=== PATIENT | female | born 1990 | race Caucasian/White ===

== ENCOUNTER → 2017-05-08 08:04 | Outpatient (CLI) | payer OTHER, SELFPAY ==
[2017-05-08 08:19] LABS: Blood Urea Nitrogen 16 mg/dL (7-18); Creatinine,Serum 0.98 mg/dL (0.55-1.02); Estimated Glomerular Filt Rate 70 ml/min (>60); GFR (African American) 84 ML/MIN (>60)
== END ==
PROVIDERS: PCP Internal Medicine Adolescent Medicine; Visit Provider Otolaryngology
DX: R42 Dizziness and giddiness (principal); H93.13 Tinnitus, bilateral
CPT/HCPCS: 36415; 82565; 84520

== ENCOUNTER → 2017-07-24 14:39 | Outpatient (CLI) | payer OTHER, SELFPAY ==
--- NOTE | 2017-07-24 14:58 | US_ITS ---
US transvaginal HISTORY: ITS.REASON: RT OVARIAN CYST ORDERING PHYSICIAN: Jose Raul Good MD PATIENT AGE: 26 years COMPARISON: 12/19/2016 FINDINGS: The uterus is 6.3 x 3 x 3.8 cm. Combined endometrial thickness is 7 mm. No uterine mass. Right ovary measures 3 x 1.7 cm and contains a 9 mm follicular cyst. Left ovary is been removed. No cul-de-sac fluid apparent. Previously there were multiple follicles noted in the right ovary. IMPRESSION: 1. Small 9 x 5 mm right ovarian cyst. Multiple previous follicles are no longer apparent. 2. Prior left oophorectomy
== END ==
PROVIDERS: Family Provider Internal Medicine Adolescent Medicine; PCP Internal Medicine Adolescent Medicine; Visit Provider Obstetrics & Gynecology
DX: N83.201 Unspecified ovarian cyst, right side (principal)
CPT/HCPCS: 76830

== ENCOUNTER → 2018-07-25 14:29 | Outpatient (CLI) | payer OTHER, SELFPAY | PROVIDERS: PCP Internal Medicine Adolescent Medicine; Visit Provider Nurse Practitioner Family | DX: Z00.00 Encounter for general adult medical examination without abnormal findings (principal) ==

== ENCOUNTER → 2019-11-03 11:26 | Outpatient (POV) | payer OTHER, SELFPAY ==
[2019-11-03 13:54] LABS: Blood Urea Nitrogen 12 mg/dl (7-17); Estimated Glomerular Filt Rate 86 ml/min (>60); GFR (African American) 104 ML/MIN (>60)
== END ==
PROVIDERS: Visit Provider Otolaryngology
DX: R42 Dizziness and giddiness (principal)
CPT/HCPCS: 36415; 82565; 84520

== ENCOUNTER → 2020-11-28 10:44 | Outpatient (CLI) | payer OTHER, SELFPAY ==
[2020-11-28 11:24] LABS: Basophils % 0.6 % (0.1-2.0); Eosinophils # 0.2 K/mm3 (0.0-0.4); Eosinophils % 2.7 % (0.1-12.0); Hemoglobin 13.5 g/dL (12.2-16.2); Lymphocytes # 1.9 K/mm3 (0.7-4.5); Lymphocytes % 29.1 % (10-50); Mean Corpuscular Hemoglobin 28.3 pg (27.0-31.2); Mean Corpuscular Volume 85.6 fl (81-99); Mean Platelet Volume 7.7 fl (7.4-10.4); Monocytes # 0.3 K/mm3 (0.1-1.0); Monocytes % 4.6 % (1.7-9.3); Platelet Count 297 K/mm3 (142-424); Red Blood Count 4.79 M/mm3 (4.20-5.40); Red Cell Distribution Width 13.7 % (11.5-17.5); White Blood Count 6.4 K/mm3 (4.8-10.8)
[2020-11-28 11:49] LABS: Chloride 107 mmol/L (98-107); Potassium 3.9 mmoL/L (3.5-5.1); Sodium 141 mmol/L (136-145)
[2020-11-28 11:51] LABS: Alanine Aminotransferase 19 U/L (12-78); Aspartate Amino Transferase 19 U/L (14-36); Blood Urea Nitrogen 14 mg/dl (7-17); Estimated Glomerular Filt Rate 85 ml/min (>60); GFR (African American) 103 ML/MIN (>60)
[2020-11-28 11:52] LABS: Albumin Level 3.8 g/dl (3.5-5.0); Albumin/Globulin Ratio 1.4 (1.1-1.8); Alkaline Phosphatase 93 U/L (38-126); Anion Gap 10.9 mEq/L (5-15); Bilirubin,Total 0.4 mg/dl (0.2-1.3); Calcium 8.9 mg/dl (8.4-10.2); Carbon Dioxide 27 mmol/L (22.0-30.0); Globulin 2.8 g/dL (1.3-3.2); Glucose 113 mg/dl (74-100); Total Protein,Serum 6.6 g/dl (6.3-8.2)
[2020-11-28 14:15] LABS: Fibrinogen 443 mg/dL (229.9-363.5)
[2020-11-28 14:26] LABS: Activated Partial Thrombo Time 27.9 seconds (22.8-30.6); Prothrombin Time 10.5 seconds (10.1-12.5)
[2020-11-28 14:27] LABS: INR 0.88 (0.9-1.1)
== END ==
PROVIDERS: Visit Provider Nurse Practitioner Family
DX: T14.8XXA Other injury of unspecified body region, initial encounter (principal)
CPT/HCPCS: 36415; 80053; 85025; 85384; 85610; 85730

== ENCOUNTER → 2021-02-02 13:59 | Outpatient (CLI) | payer OTHER, SELFPAY ==
[2021-02-02 15:28] LABS: Fibrinogen 437 mg/dL (229.9-363.5)
== END ==
PROVIDERS: Visit Provider Internal Medicine Medical Oncology
DX: R79.1 Abnormal coagulation profile (principal); R23.2 Flushing
CPT/HCPCS: 36415; 85384

== ENCOUNTER → 2021-02-14 18:20 | Outpatient (CLI) | payer OTHER, SELFPAY ==
[2021-02-21 14:21] LABS: Vitamin C 0.4 mg/dL (0.4-2.0)
== END ==
PROVIDERS: Visit Provider Internal Medicine Medical Oncology
DX: R23.2 Flushing (principal); R79.89 Other specified abnormal findings of blood chemistry
CPT/HCPCS: 36415; 82180

== ENCOUNTER 2021-04-01 11:41 | Emergency (ER) | payer OTHER, SELFPAY ==
[2021-04-01 12:24] VITALS: BP 179/74; PULSE 81; RESP 19; TEMP 36.5; O2SAT 100; BMI 40.7
--- NOTE | 2021-04-01 12:37 | HMH.EDUTC ---
[facility] [place] Clinical Impression: Viral syndrome Pharyngitis Qualifiers: Pharyngitis/tonsillitis etiology: unspecified etiology Qualified Code(s): J02.9 - Acute pharyngitis, unspecified Sinusitis Qualifiers: Sinusitis location: unspecified location Chronicity: acute Recurrence: non-recurrent Qualified Code(s): J01.90 - Acute sinusitis, unspecified Disposition: Home, Self-Care Condition on Discharge: Good Instructions: DI for Sinusitis, DI for Viral Syndrome Additional Instructions: Drink plenty of fluids. Take tylenol or ibuprofen for pain or fever. Take the medications as directed. Follow up with your regular doctor. GO TO THE ER FOR ANY WORSENING SYMPTOMS Quarantine until you know the results of your covid-19 test. If it is positive, the health department should call you and give you further instructions about your length of Quarantine and other things. Notify your school or workplace of your results and follow their instructions regarding return to work/school. Prescriptions: Promethazine/Dextromethorphan [Promethazine-Dm Syrup] 5 ml PO Q6HP PRN #240 ml PRN Reason: Cough Transmission Status: Received by [facility] Benzonatate [Benzonatate 100mg cap] 100 mg PO TIDP PRN #30 cap PRN Reason: Cough Transmission Status: Received by [facility] methylPREDNISolone [Medrol] 4 mg PO DIRECTED 6 Days #21 packet Transmission Status: Received by [facility] Azithromycin [Z-Jose 250mg Tab*] 250 mg PO UD DOSE PK #6 tab Transmission Status: Received by [facility] Referrals: Puma Fuentes MD [Primary Care Provider] - Forms: Work/School Release Time of Disposition: 13:20 Medical Decision Making - Medical Records Medical records reviewed: No: I reviewed the patient's medical records. - Han Inquiry Pt receiving controlled substance: No Vital Signs: 04/01/21 12:24 04/01/21 13:01 Temperature 97.7 F 97.7 F Temperature Source Oral Pulse Rate 81 Pulse Rate [Left] 81 Respiratory Rate 19 19 Blood Pressure 179/74 H Blood Pressure [Right Arm] 179/74 H Blood Pressure Mean [Right Arm] 109 02 Sat by Pulse Oximetry 100 - Lab Data Lab results reviewed: Yes: I reviewed the patient's lab results. Lab Results 04/01/21 12:37: Influenza Type A Ag Negative, Influenza Type B Ag Negative 04/01/21 12:55: Strep Scn Rapid Clinic Negative Orders (Tests/Meds): ORDERS Category Date Time Status Strep Screen Confirmation Stat Micro 04/01/21 12:55 [place] [facility] [place] - General Stated complaint: sore throat, musle pain, congestion, headache Time Seen by Provider: 04/01/21 12:37 Mode of Arrival: Ambulatory Source of Information: Patient Limitations: No Limitations Description of Symptoms (Recalled from Triage Doc. by RN): pt c/o head congestion, nasal drainage, body aches and fever. HEENT Symptoms (Recalled from RN notes): Yes (nasal congestion and drainage) Resp Symptoms (Recalled from RN notes): No Skin Symptoms (Recalled from RN notes): No MS Symptoms (Recalled from RN notes): No Functional Status (Recalled from RN notes): wnl - History of Present Illness Provider Complaint: She c/o sore throat, sinus pressure, nasla drainage, a cough and mild chest tightness for the past 4 days. - Related Data Home Medications Medication Instructions Recorded Confirmed hydrochlorothiazide 50 mg tablet 50 mg PO ONCE 07/18/17 02/23/21 bupropion HCl 150 mg tablet,12 hr 150 mg PO DAILY 02/02/21 02/23/21 sustained-release potassium gluconate 595 mg (99 mg) 595 mg PO DAILY 02/02/21 02/23/21 tablet Previous Rx's Medication Instructions Recorded PNV 153-FA 400 mcg-om3 35 mg-dha 1 tab PO DAILY #30 tab 01/26/20 25 mg-epa 5 mg-fish oil chew tablet Tri-Sprintec (28) 0.18 mg(7)/0.215 See Rx Instructions .ROUTE 02/18/21 mg(7)/0.25 mg(7)-35 mcg tablet .COMPLEX #28 tab NS Azithromycin [Z-Jose 250mg Tab*] 250 mg PO UD DOSE PK #6 tab
[2021-04-01 12:41] LABS: UTC Influenza A Antigen Negative (Negative); UTC Influenza B Antigen Negative (Negative)
[2021-04-01 13:01] VITALS: BP 179/74; PULSE 81; RESP 19; TEMP 36.5
[2021-04-01 13:06] LABS: UTC Strep Screen (Rapid) Negative (Negative)
== END 2021-04-01 13:27 | disposition home or self-care (01) ==
PROVIDERS: Emergency Provider Nurse Practitioner Family; PCP Internal Medicine Adolescent Medicine
DX: U07.1 COVID-19 (principal); J01.90 Acute sinusitis, unspecified
CPT/HCPCS: 87804; 87880; 99203; C9803; G0463; U0003; U0005

== ENCOUNTER 2022-02-05 10:44 | Emergency (ER) | payer BC, SELFPAY ==
[2022-02-05 10:59] VITALS: BP 126/84; PULSE 98; RESP 16; TEMP 36.9; O2SAT 98; BMI 44.3
--- NOTE | 2022-02-05 11:01 | EXP.UTC ---
Discharge Plan Disposition Patient Disposition: Home, Self-Care Condition: Good Prescriptions Prescriptions: No Action hydrochlorothiazide 50 mg tablet 50 mg PO ONCE Gummies 400 mcg-35 mg- 25 mg-5 mg tablet,chewable 1 tab PO DAILY Qty: 30 6RF bupropion HCl [Wellbutrin SR] 150 mg tablet sustained-release 12 hr 150 mg PO DAILY potassium gluconate 595 mg (99 mg) tablet 595 mg PO DAILY norgestimate-ethinyl estradiol [Tri-Sprintec (28)] 0.18/0.215/0.25 mg-35 mcg (28) tablet See Rx Instructions .ROUTE .COMPLEX Qty: 28 0RF Dose Instruction: Take 1 tablet by mouth once daily Rx Instructions: Take 1 tablet by mouth once daily azithromycin 250 MG tablet 250 mg PO UD DOSE PK Qty: 6 0RF Rx Instructions: Take two (2) tablets today, then one (1) tablet days #2 thru #5 methylprednisolone 4 MG tablets,dose pack 4 mg PO DIRECTED 6 Days Qty: 21 0RF promethazine-DM 120 ML syrup 5 ml PO Q6HP PRN (Reason: Cough) Qty: 240 0RF benzonatate 100 MG capsule 100 mg PO TIDP PRN (Reason: Cough) Qty: 30 0RF Referrals Follow up/Referrals: Puma Fuentes MD [Primary Care Provider] - See instructions Activity Restrictions/Add. Instructions Additional Instructions/Restrictions: *Monitor Temp, Over the counter Motrin or Tylenol as directed/as needed Tylenol every 4 hours and Motrin every 6 hours (as long as your family doctor has told you that you can take it) for fever or pain. and straight to ER if unable to lower temp less than 101.0 after medication given *Warm salt water gargles may help to soothe the throat *Throat Lozenges? *Warm fluids like tea with honey may help to soothe the throat? *Sleep elevated *Humidifier/Vaporizer Follow up IMMEDIATELY for new or worsening symptoms or no Noticeable improvement over the next 48-72 hours. 911 for difficulty breathing or swallowing You were tested for today for COVID19 your test result should be back in the next 24-48 hours, you may check your results on the [facility] Make sure to take your Vitamins Vit. C Vit D and Zinc if you can take them Clinical Impressions Clinical Impression: Exposure to COVID-19 virus Stand Alone Forms Stand Alone Forms: Work/School Release Instructions Patient Instructions: Coronavirus Disease 2019, Preventing the Spread of Coronavirus Discharge Instructions Discharge ED Provider[place] [facility] [place] General Stated complaint: Covid test, cough, congestion Time Seen by Provider: 02/05/22 11:01 History of Present Illness Provider Complaint: Patient states that she has been around her father that tested positive for COVID states that she has been having cough and nasal congestion so she came in to get tested for COVID Related Data Home Medications Medication Instructions Recorded Confirmed hydrochlorothiazide 50 mg tablet 50 mg PO ONCE 07/18/17 02/23/21 bupropion HCl 150 mg tablet,12 hr 150 mg PO DAILY 02/02/21 02/23/21 sustained-release (Wellbutrin SR) potassium gluconate 595 mg (99 mg) 595 mg PO DAILY 02/02/21 02/23/21 tablet Previous Rx's Medication Instructions Recorded PNV 153-FA 400 mcg-om3 35 mg-dha 1 tab PO DAILY #30 tabs 01/26/20 25 mg-epa 5 mg-fish oil chew tablet ( Gummies) azithromycin 250 mg tablet 250 mg PO UD DOSE PK #6 tabs 04/01/21 benzonatate 100 mg capsule 100 mg PO TIDP PRN Cough #30 caps 04/01/21 methylprednisolone 4 mg tablets in 4 mg PO DIRECTED 6 days #21 04/01/21 a dose pack packets promethazine-DM 6.25 mg-15 mg/5 mL 5 ml PO Q6HP PRN Cough #240 mL 04/01/21 oral syrup Tri-Sprintec (28) 0.18 mg(7)/0.215 See Rx Instructions .Route 01/29/22 mg(7)/0.25 mg(7)-35 mcg tablet .COMPLEX #28 tabs (norgestimate-ethinyl estradiol) Allergies Allergy/AdvReac Type Severity Reaction Status Date / Time cefaclor [From CECLOR] Allergy Intermediate I-RASH Verified 02/05/22 11:03 cephalexin [From KEFLEX] Allergy In
[2022-02-05 11:28] VITALS: BP 136/84; PULSE 98; RESP 16; TEMP 36.9
== END 2022-02-05 11:29 | disposition home or self-care (01) ==
PROVIDERS: Emergency Provider Nurse Practitioner; PCP Internal Medicine Adolescent Medicine
DX: U07.1 COVID-19 (principal); R05.9 Cough, unspecified; Z79.52 Long term (current) use of systemic steroids; Z88.8 Allergy status to other drugs, medicaments and biological substances
CPT/HCPCS: 99213; C9803; G0463; U0003; U0005

== ENCOUNTER → 2022-04-30 09:12 | Outpatient (CLI) | payer BC, SELFPAY ==
[2022-04-30 09:52] LABS: Chloride 103 mmol/L (98-107)
[2022-04-30 09:53] LABS: Potassium 3.1 mmoL/L (3.5-5.1); Sodium 139 mmol/L (136-145)
[2022-04-30 09:55] LABS: Alanine Aminotransferase 18 U/L (12-78); Alkaline Phosphatase 90 U/L (38-126); Anion Gap 11.1 mEq/L (5-15); Aspartate Amino Transferase 20 U/L (14-36); Bilirubin,Total 0.4 mg/dl (0.2-1.3); Blood Urea Nitrogen 15 mg/dl (7-17); Carbon Dioxide 28 mmol/L (22.0-30.0); Estimated Glomerular Filt Rate 74 ml/min (>60); GFR (African American) 90 ML/MIN (>60)
[2022-04-30 09:56] LABS: Albumin Level 3.5 g/dl (3.5-5.0); Albumin/Globulin Ratio 1.3 (1.1-1.8); Calcium 8.4 mg/dl (8.4-10.2); Globulin 2.6 g/dL (1.3-3.2); Glucose 110 mg/dl (74-100); Magnesium 2.1 mg/dl (1.6-2.3); Total Protein,Serum 6.1 g/dl (6.3-8.2)
== END ==
PROVIDERS: PCP Internal Medicine Adolescent Medicine; Visit Provider Otolaryngology
DX: T50.1X5A Adverse effect of loop [high-ceiling] diuretics, initial encounter (principal); E87.6 Hypokalemia
CPT/HCPCS: 36415; 80053; 83735

== ENCOUNTER 2024-09-28 20:29 | Emergency (ER) | payer BC, SELFPAY ==
[2024-09-28 20:37] VITALS: BP 131/64; PULSE 76; RESP 16; TEMP 37; O2SAT 100; BMI 40.7
--- NOTE | 2024-09-28 20:43 | XR_ITS ---
PROCEDURE INFORMATION: Exam: XR Right Ankle Exam date and time: 09/28/2024 8:46 PM Age: 34 years old Clinical indication: Pain; Ankle; Right; Additional info: Ankle injury, twisted ankle TECHNIQUE: Imaging protocol: Radiologic exam of the right ankle. Views: 3 or more views. COMPARISON: No relevant prior studies available. FINDINGS: Bones/joints: No acute fracture or malalignment. Calcaneal enthesopathy. Soft tissues: Unremarkable. IMPRESSION: No acute osseous findings.
--- NOTE | 2024-09-28 20:55 | PC.NURSE ---
Ice pack applied
[2024-09-28 21:00] LABS: Urine Pregnancy, HCG Qual. Negative (Negative)
--- NOTE | 2024-09-28 22:08 | HMH.EDGENADL ---
Discharge Plan Disposition Patient Disposition: Home, Self-Care Condition: Good Prescriptions Prescriptions: No Action hydrochlorothiazide 50 mg tablet 50 mg PO ONCE Gummies 400 mcg-35 mg- 25 mg-5 mg tablet,chewable 1 tab PO DAILY Qty: 30 6RF bupropion HCl [Wellbutrin SR] 150 mg tablet sustained-release 12 hr 150 mg PO DAILY potassium gluconate 595 mg (99 mg) tablet 595 mg PO DAILY norgestimate-ethinyl estradiol [Tri-Sprintec (28)] 0.18/0.215/0.25 mg-35 mcg (28) tablet See Rx Instructions .ROUTE .COMPLEX Qty: 84 3RF Dose Instruction: Take 1 tablet by mouth once daily Rx Instructions: Take 1 tablet by mouth once daily Referrals Follow up/Referrals: Puma Fuentes MD [Primary Care Provider, Internal Medicine] - See instructions Activity Restrictions/Add. Instructions Additional Instructions/Restrictions: As we discussed, your x-ray of your ankle did not show any broken bones. It is likely, in this case, that you have an ankle sprain. Please bear weight as tolerated and take Tylenol and ibuprofen as needed for pain. Please return with any worsening symptoms Clinical Impressions Clinical Impression: Right ankle sprain Print Language Print Language: Tristanian Discharge ED Provider: Ramez Winter General Adult HPI General Chief complaint: Extremity Injury, Upper Stated complaint: AO 09/28/24 1700 right ankle injury Time Seen by Provider: 09/28/24 22:08 Mode of Arrival: Wheelchair Source of Information: Patient Description of Symptoms (Recalled from ER Triage Doc. by RN): Pt presents with right ankle pain after rolling it around 1700. History of Present Illness HPI narrative: The patient presents with a chief complaint of ankle injury. . The pain is localized primarily to the inside of the ankle, particularly when flexing or pointing the foot. The patient has been unable to bear weight on the affected ankle since the injury occurred. The patient describes the pain as similar to a previous foot fracture experienced 10 years ago in the same foot. However, they note that unlike the previous injury, which caused immediate swelling like a grapefruit, the current injury did not result in such dramatic swelling. The patient denies any numbness or tingling in the foot. They also deny any pain in the knee or other areas besides the ankle. The patient has a history of a broken foot on the same side approximately 10 years ago. They report no other past ankle or foot issues on the currently affected side. Medical history is significant for a foot fracture 10 years ago, which also required surgery. Associated symptoms include pain with flexion and pointing of the foot. The patient denies knee pain, numbness, or tingling in the foot. Please note that above description of symptoms, in this electronic medical record under categorization of recalled from ER triage doctor by RN are reflective of an initial nursing assessment, however, is not reflective of my full history and physical exam that was personally taken and clarified. Consequentially, this preceding description of symptoms, which may include the patient's categorized chief complaint in the EMR, do not reflect my personal clinical impression, and the ultimate description of history of present illness and patient stated complaints should be deferred to this section of the note. Unless stated otherwise or congruent with this section of the note, additional signs, symptoms, or incongruence should be interpreted as inaccurate with my clinical impression. Related Data Home Medications ?Medication ?Instructions ?Recorded ?Confirmed hydrochlorothiazide 50 mg tablet 50 mg PO ONCE 07/18/17 02/26/22 bupropion HCl 150 mg tablet,12 hr 150 mg PO DAILY 02/02/21 02/26/22 sustained-release (Wellbutrin SR) potassium gluconate 595 mg (99 mg) 595 mg PO DAILY 02/02/21 02/26/22 tablet Previous Rx's ?Medication ?Instructions ?Recorded PNV 153-FA 400 mcg-om3 35 mg-dha 1 tab PO DAILY #30 tabs 01/26/20 25 mg-epa 5 mg-fish oil chew tablet ( Gummies) Tri-Sprintec (28) 0.18 mg(7)/0.215 See Rx Instructions .Route 02/10/23 mg(7)/0.25 mg(7)-0.035 mg tablet .COMPLEX #84 tabs (norgestimate-ethinyl estradiol) Allergies Allergy/AdvReac Type Severity Reaction Status Date / Time cefaclor (From CECLOR) Allergy Intermediate I-RASH Verified 02/26/22 09:53 cephalexin (From KEFLEX) Allergy Intermediate I-RASH Verified 02/26/22 09:53 [facility] Disclaimer: The information contained in this section may have been updated after the patient was seen, as this information can be updated by other users. Social History Smoking Status: Never smoker alcohol intake: never substance use type: denies use current occupational status: employed Travel in the last 8 weeks?: None Have you lived/traveled outside US in past 30 days?: No Contact w/someone who lives/traveled outside US past 30 days?: No Exposure to someone with infectious disease in past 14 days?: No Do you have a fever (greater than 100.4 F or 38 C)?: No Have you tested positive for COVID-19?: No Exposed to someone with COVID-19 in past 14 days?: No Do you have a sore throat?: No Do you have a cough?: No Do you have any weakness?: No Do you have any diarrhea?: No Are you experiencing any unusual bleeding?: No Do you have any muscle aches/pain?: No Do you have any abdominal pain?: No Are you experiencing loss of taste or smell?: No Other Medical History Have you received the Flu Vaccine for this season: No Have you received the Pneumonia Vaccine: No ROS Obtained: Yes other As per HPI Physical Exam General General appearance: alert and in no apparent distress Head Head exam: atraumatic and normocephalic Eye Eye exam: Present normal appearance Neck Neck exam: Present normal inspection Chest Chest inspection: Present normal inspection and symmetric chest wall rise Respiratory Respiratory exam: Present normal lung sounds bilaterally; Absent respiratory distress Cardiovascular Cardiovascular exam: Present regular rate and normal rhythm Abdominal Exam Abdominal exam: Present soft Neurological Exam Neurological exam: Present alert and oriented X3 Psychiatric Psychiatric exam: Present normal affect and normal mood Skin Skin exam: Present warm and dry Other Other exam information: Lateral malleoli are tenderness to palpation on affected ankle. Distally neurovascularly intact Medical Decision Making Medical Records Medical records reviewed: Yes I reviewed the patient's medical records. Screening: Per USPSTF and CDC recommendations, given the prevalence of disease in our region, it is our hospital?s policy to screen for HIV and viral Hepatitis for all patients aged 18 and over and those with ongoing risk factors. Han Inquiry Pt receiving controlled substance: No Vital Signs: 09/28/24 20:37 09/28/24 22:56 Temperature 98.6 F 98.3 F Temperature Source Oral Oral Pulse Rate 73 Pulse Rate [Left] 76 Respiratory Rate 16 16 Blood Pressure 107/65 L Blood Pressure [Right Arm] 131/64 Blood Pressure Mean [Right Arm] 86 Blood Pressure Source [Right Arm] Automatic Cuff Blood Pressure Position [Right Arm] Sitting 02 Sat by Pulse Oximetry 100 Oxygen Delivery Method Room Air Room Air Lab Data Lab Results 09/28/24 20:45: Urine HCG, Qual Negative Orders (Tests/Meds): ORDERS Category Date Time Status Ankle XR -Right minimum 3 Views [XR ankle RT min 3V] Exams 09/28/24 20:43 Completed Stat Urine , HCG Qual. Stat Lab 09/28/24 20:45 Completed Medical Decision Narrative: Patient with history and exam per above presenting for evaluation of ankle pain Diagnoses considered include sprain, strain, fracture, no clinical evidence of neurovascular injury or injury elsewhere ED workup and treatment included: Ankle x-ray Imaging was independently visualized and interpreted by me, significant for no acute osseous abnormality Please refer to radiology report for full details. My clinical impression at this time is most consistent with ankle sprain I discussed my clinical impression with patient and answered all questions. At this time, the evidence for any other entities in the differential is insufficient to warrant any further testing or ED observation. This was explained to the patient. The patient was advised that persistent or worsening symptoms require further evaluation. Critical Care Critical Care Time Critical Care Time: No
[2024-09-28 22:56] VITALS: BP 107/65; PULSE 73; RESP 16; TEMP 36.8; O2SAT 100
== END 2024-09-28 23:04 | disposition home or self-care (01) ==
PROVIDERS: Emergency Provider Emergency Medicine; PCP Internal Medicine Adolescent Medicine
DX: S93.401A Sprain of unspecified ligament of right ankle, initial encounter (principal); X50.1XXA Overexertion from prolonged static or awkward postures, initial encounter
CPT/HCPCS: 73610; 81025; 99283

== ENCOUNTER 2025-04-15 10:54 | Outpatient (CLI) | payer BC, SELFPAY ==
--- OUTSIDE RECORDS SUMMARY | 2025-04-15 12:15 | XMS_ITS ---
Author Organization Unknown ENCOUNTERS Encounter Performer Location Date Diagnosis Diagnosis Status Emergency [facility] [place] [place] [address] [id number] [place] Pre Admit [address] [place] [address] [id number] Emergency Natalee Morales [address] [address] [place] [address] [id number] [place] Emergency Rickey Ya [address] [place] [address] [phone] [place] *Note: Encounters from your own facility or health system may be excluded. Allergies, Adverse Reactions, Alerts Allergen Type Severity Identification Date cefaclor drug allergy 3 20210223 cephalexin drug allergy 3 20210223 Medications Name Date Quantity Days Supplied GPI Number
--- OUTSIDE RECORDS SUMMARY | 2025-04-15 12:15 | XMS_ITS | Clinical Summary ---
Author Organization [facility] Address [address] [place] [address] Care Team Providers Care Mold Maintenance Technician Name Role Phone Puma Fuentes MD Primary Care Provider [phone] Allergies Active Allergy Reactions Criticality Noted Date Comments Cefaclor Rash,Unknown - Low Severity Medium 02/27/20 22 Cephalexin Rash,Unknown - Low Severity Medium 02/27/20 22 Medications buPROPion XL (WELLBUTRIN XL) 150 MG 24 hr tablet TAKE 1 TABLET BY MOUTH EVERY 24 HOURS Active hydroCHLOROthia zide 50 MG tablet Take 1 tablet by mouth Every Morning. Active potassium chloride (KLOR-CON M20) 20 MEQ CR tablet Take 1 tablet by mouth Daily. Active multivitamin (MULTI VITAMIN PO) Take by mouth Daily. Active potassium chloride (MICRO-K) 10 MEQ CR capsule Take 1 capsule by mouth 2 (Two) Times a Day. 60 capsule 1 02/07/2024 Active Active Problems No known active problems Family History Medical History Relation Name Comments Diabetes Mother Tracie Benson Hypertension Mother Tracie Benson Relation Name Status Comments Mother Tracie Benson Social History Tobacco Use Types Packs/Day Years Used Date Smoking Tobacco: Never Tobacco Cessation:Counseling Given: Not Answered Alcohol Use Standard Drinks/Week Comments Never 0 (1 standard drink = 0.6 oz pur e alcohol) Comments Unknown Sex and Gender Information Value Date Recorded Sex Assigned at Not on file Legal Sex Female 10:37 AM EDT Gender Identity Not on file Sexual Orientation Not on file Last Filed Vital Signs Vital Sign Reading Time Taken Comments Blood Pressure 140/90 05/06/2024 11:00 AM EST Pulse - - Temperature - - Respiratory Rate - - Oxygen Saturation - - Inhaled Oxygen Concentration - - Weight 120 kg (264 lb) 05/06/2024 11:00 AM EST Height 170.2 cm (5' 7.01 ) 05/06/2024 11:[address] Body Mass Index 41.34 05/06/2024 11:00 AM EST Plan of Treatment Upcoming Encounters Date Type Department Care Team (Late st Contact Info) Description 05/05/2025 3:20 PM EST Office Visit [facility] [address] [place] [address] Lilli Samuel MD [address] [facility] [address] [place] [address] Health Maintenance Due Date Last Done Comments TDAP/TD VACCINES (1 - Tdap) 09/08/2011 ANNUAL PHYSICAL 08/21/2023 HEPATITIS C SCREENING 08/21/2023 Annual Gynecologic Pelvic an d Breast Exam 08/21/2024 08/21/2023 INFLUENZA VACCINE 11/27/2024 03/31/2015 PAP SMEAR 08/20/2026 08/21/2023 Pneumococcal Vaccine 0-49 Aged Out No longer eligible based on patient's age to complete this topic Procedures Procedure Name Priority Date/Time Associated Diagnosis Comments LIQUID-BASED PAP SMEAR WITH HPV GENOTYPING REGARDLESS OF INTERPRETATION, [facility] ([facility]) Routine 08/21/2023 2:22 PM EDT Encounter for gynecological examination without abnormal finding from Last 3 Months or Most Recently Relevant to Health Maintenance Results * LIQUID-BASED PAP SMEAR WITH HPV GENOTYPING REGARDLESS OF INTERPRETATION (FILIPE,COR,MAD) (08/21/2023 2:22 PM EDT) Reference Lab Report [facility] [address] [place] [address] or [phone] Raman Youssef M.D., Card Lacer Jacquard PATIENT NAME LABORATORY NO[facility] 6[address] AYLEEN MICHEL [id number] AGE SEX SSN CLIENT REF # [facility] 30 1990 F [id number] Ama MARJ ARREDONDO REQUESTING Shiva ATTENDING M.D. COPY TO. XAVIER MONTE [id number] LILLI SAMEUL DATE COLLECTED DATE RECEIVED DATE REPORTED 08/21/2023 08/21/2023 08/26/2023 ThinPrep Pap with Cytyc Imaging DIAGNOSIS: Negative for intraepithelial lesion or malignancy Multiple factors can influence accuracy of Pap tests; therefore, screening at regular intervals is necessary for early cancer detection. COMMENT: Benign cellular changes associated with inflammation are present. FUNGAL ORGANISMS MORPHOLOGICALLY CONSISTENT WITH SAM SPECIES ARE PRESENT. SPECIMEN ADEQUACY: SATISFACTORY FOR EVALUATION Transformation zone is present. SOURCE OF SPECIMEN: CERVICAL SLIDES: 1 CLINICAL HISTORY: Encounter for gynecological examination without abnormal finding HPV HR-HPV POOL: Negative The Aptima HPV assay is an in vitro nucleic acid amplification test for the qualitative detection of E6/E7 viral messenger RNA from 14 high risk types of HPV in cervical specimens. The high risk HPV types detected include: 16, 18, 31, 33, 35, 39, 45, 51, 52, 56, 58, 59, 66, 68 MACHINE PAINT MIXER: ALINA ARROYO (ASCP) CPT CODES: 94256, 45273 08/26/2023 8:37 AM EDT [facility] ThinPrep Vial Collection / Unknown 08/21/2023 2:22 PM EDT 08/21/2023 2:23 PM EDT Lilli Samuel MD PATHOLOGY/CYTOLOGY ORDERABLES Fi nal Result [facility]
[address] [place] [address], from Last 3 Months or Most Recently Relevant to Health Maintenance Insurance [facility] PPO Care Teams Mold Maintenance Technician Relationship Specialty Start Date End Date Puma Fuentes MD [facility] [address] [facility] [place] [id number] PCP - General Adolescent Medicine 01/25/25
[2025-04-15 12:17] LABS: Chloride 99 mmol/L (98-107); Potassium 3.5 mmoL/L (3.5-5.1); Sodium 136 mmol/L (136-145)
[2025-04-15 12:20] LABS: Anion Gap 9.5 mEq/L (5-15); Blood Urea Nitrogen 18 mg/dl (7-17); Calcium 9.0 mg/dl (8.4-10.2); Carbon Dioxide 31 mmol/L (22.0-30.0); Creatinine,Serum 0.90 mg/dl (0.52-1.04); Estimated Glomerular Filt Rate 73 ml/min (>60); GFR (African American) 88 ML/MIN (>60); Glucose 94 mg/dl (74-100)
== END 2025-04-15 23:59 | disposition home or self-care (01) ==
LOC: LAB 10:56
PROVIDERS: PCP Internal Medicine Adolescent Medicine; Visit Provider Otolaryngology
DX: H81.09 Meniere's disease, unspecified ear (principal)
CPT/HCPCS: 36415; 80048